=== PATIENT | female | born 1980 | race African-American/Black ===

== ENCOUNTER 2020-08-19 14:39 | Emergency (ER) | payer MEDICAID ==
[~2020-08-19] VITALS: Ht 157.5 cm; Wt 79.0 kg
[~2020-08-19 14:39] MED LIST: AMOXICILLIN500 MG OR; CIPROFLOXACN500 MG PO; CLARITIN10 MG OR; NAPROSYN500 MG PO; NO
[2020-08-19 15:54] VITALS: BP 116/74
== END 2020-08-19 15:59 | disposition home or self-care (01) ==
LOC: ED 14:39
DX: J06.9 Acute upper respiratory infection, unspecified (principal); Z20.822 Contact with and (suspected) exposure to COVID-19

== ENCOUNTER 2022-12-10 23:56 | Emergency (ER) | payer MEDICAID ==
[~2022-12-10] VITALS: Ht 157.5 cm; Wt 86.2 kg
[2022-12-11] VITALS (9 sets, daily range): BP systolic 112–141; BP diastolic 77–92
[2022-12-11 01:23] LABS: BASO% 0.5 % (0-3); EOS% 5.6 % (0-8); HEMATOCRIT 40.1 % (37.0-47.0); HEMOGLOBIN 12.4 g/dl (12.0-16.0); IMMATURE GRANULOCYTES 0.2 % (0.0-5.0); LYMPH% 31.8 % (15-41); MEAN CELL VOLUME 86.1 fL CALC (80.0-100.0); MEAN CORPUSCULAR HGB 26.6 pG CALC (26.0-32.0); MEAN CORPUSCULAR HGB CONC 30.9 g/dL CAL (32.0-36.0); MONO% 8.4 % (2-13); NEUT# 5.56 thou/uL (2.00-7.15); NEUT% 53.5 % (42-76); RED BLOOD COUNT 4.66 mill/uL (4.20-5.60); RED CELL DISTRI WIDTH 15.4 % (11.5-15.5)
== END 2022-12-11 02:09 | disposition home or self-care (01) ==
LOC: ED 23:56
PROVIDERS: Family Medicine
DX: J06.9 Acute upper respiratory infection, unspecified (principal); Z20.822 Contact with and (suspected) exposure to COVID-19

== ENCOUNTER 2023-02-18 03:20 | Emergency (ER) | payer MEDICAID ==
[~2023-02-18] VITALS: Ht 157.5 cm; Wt 81.0 kg
[2023-02-18 03:26] VITALS: BP 130/93
[2023-02-18 03:30] VITALS: BP 142/93
[2023-02-18 04:08] LABS: BASO% 0.6 % (0-3); EOS% 7.2 % (0-8); HEMATOCRIT 39.6 % (37.0-47.0); IMMATURE GRANULOCYTES 0.1 % (0.0-5.0); MEAN CORPUSCULAR HGB 25.8 pG CALC (26.0-32.0); MEAN CORPUSCULAR HGB CONC 30.3 g/dL CAL (32.0-36.0); MONO% 7.8 % (2-13); NEUT# 4.55 thou/uL (2.00-7.15); NEUT% 45.3 % (42-76); RED BLOOD COUNT 4.66 mill/uL (4.20-5.60); RED CELL DISTRI WIDTH 15.5 % (11.5-15.5)
[2023-02-18 05:05] VITALS: BP 138/88
== END 2023-02-18 05:14 | disposition home or self-care (01) ==
LOC: ED 03:20
PROVIDERS: Family Medicine
DX: J06.9 Acute upper respiratory infection, unspecified (principal); Z20.822 Contact with and (suspected) exposure to COVID-19

== ENCOUNTER 2023-08-12 17:49 | Emergency (ER) | payer MEDICAID ==
[2023-08-12] VITALS (7 sets, daily range): BP systolic 109–123; BP diastolic 60–81
[~2023-08-12] VITALS: Ht 157.5 cm; Wt 82.0 kg
[2023-08-12] MEDS ORDERED: TAM75CAP PO (19:37)
== END 2023-08-12 19:55 | disposition home or self-care (01) ==
LOC: ED 17:49
DX: J10.1 Influenza due to other identified influenza virus with other respiratory manifestations (principal); E66.9 Obesity, unspecified; Z20.822 Contact with and (suspected) exposure to COVID-19